=== PATIENT | male | born 1990 | race Caucasian/White ===

== ENCOUNTER 2020-11-04 15:57 | Emergency (ER) | payer OTHER, SELFPAY ==
--- NOTE | 2020-11-04 03:22 | XRR_ITS ---
PROCEDURE INFORMATION: Exam: XR Chest Exam date and time: 11/04/2020 7:16 PM Age: 30 years old Clinical indication: Condition or disease; Lung condition and disease; Pneumothorax TECHNIQUE: Imaging protocol: XR of the chest. Views: 1 view. COMPARISON: No relevant prior studies available. FINDINGS: There is a small to moderate sized left pneumothorax. The right lung is clear. No infiltrates are present. There is no pleural effusion. The heart size is normal. XR/XR chest 1V portable [id number] IMPRESSION: Small to moderate sized left pneumothorax. There is approximately a 2.7 cm separation of the pleural surface within the apex.
[2020-11-04 16:08] VITALS: BP 129/70; PULSE 85; RESP 18; TEMP 37.1; O2SAT 100; BMI 25.1
[2020-11-04 16:15] VITALS: BP 129/70; PULSE 90; RESP 18; O2SAT 97
[2020-11-04] MEDS: ketorolac 60 mg/2 mL INJ IM (17:03)
[2020-11-04] MEDS: orphenadrine 30 mg/mL Inj 2 mL 60 MG IM (17:04)
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
--- NOTE | 2020-11-04 17:15 | CTR_ITS ---
PROCEDURE INFORMATION: Exam: CT Abdomen And Pelvis With Contrast Exam date and time: 11/04/2020 5:30 PM Age: 30 years old Clinical indication: Abdominal pain; Generalized; Prior surgery; Surgery date: 6+ months; Surgery type: Appy; Additional info: Abd pain TECHNIQUE: Imaging protocol: Computed tomography of the abdomen and pelvis with contrast. Radiation optimization: All CT scans at this facility use at least one of these dose optimization techniques: automated exposure control; mA and/or kV adjustment per patient size (includes targeted exams where dose is matched to clinical indication); or iterative reconstruction. Contrast material: OMNIPAQUE 300; Contrast volume: 95 ml; Contrast route: INTRAVENOUS (IV); COMPARISON: No relevant prior studies available. RADIATION DOSE METRICS: Total DLP (mGy-cm): 1387.65 FINDINGS: There is some atelectasis within the lung bases. There is small pleural effusions. There is a left pneumothorax. Bony structures are unremarkable. There is no liver mass. There is no intrahepatic biliary dilatation. The gallbladder is contracted likely due to recent meal. The stomach is filled with food. The pancreas is unremarkable. Splenic granulomas are present. There is no adrenal mass. There is no hydronephrosis. There are no renal calculi. There is no perinephric stranding. There is no renal mass. The aorta is normal in caliber. The IVC is normal in caliber. There is no retroperitoneal adenopathy. There is no mesenteric adenopathy. There is no gastric wall thickening. The small bowel loops in the upper abdomen are nondistended with no bowel wall thickening. Feces is seen throughout the colon. There is no thickening of the wall of the ascending, transverse or descending colons. Within the pelvis:The patient is status post appendectomy. The bladder is unremarkable. The prostate gland and seminal vesicles are normal. There is no free fluid within the pelvis. There is no inguinal adenopathy. There is no pelvic adenopathy. The bowel loops within the pelvis are unremarkable. There is some air within the soft tissues involving the left gluteal muscles of uncertain significance. Please correlate clinically. CT/CT abdomen pelvis w con* [id number] IMPRESSION: 1. Small bilateral pleural effusions. 2. Left pneumothorax. 3. No evidence for bowel obstruction or bowel wall thickening. 4. Air within the soft tissues of the left gluteal muscles of uncertain significance. Please correlate clinically. Radiation Dose CTDIVOL = (mGy): DLP = 1387.65 (mGy-cm)
[2020-11-04 18:15] VITALS: BP 109/73; PULSE 81; RESP 18; O2SAT 95
[2020-11-04] MEDS: iohexol 300 mg/mL 100 mL Btl IV (18:46)
[2020-11-04 20:56] VITALS: BP 119/70; PULSE 87; RESP 17; O2SAT 98
== END 2020-11-04 20:56 | disposition home or self-care (01) ==
PROVIDERS: Emergency Provider Emergency Medicine
DX: S27.0XXA Traumatic pneumothorax, initial encounter (principal); S32.519A Fracture of superior rim of unspecified pubis, initial encounter for closed fracture; T79.7XXA Traumatic subcutaneous emphysema, initial encounter; Z79.82 Long term (current) use of aspirin; V09.9XXA Pedestrian injured in unspecified transport accident, initial encounter
CPT/HCPCS: 71045; 74177; 96372; 96374; 99283; J1885; J2360; Q9967

== ENCOUNTER 2022-04-14 20:17 | Emergency (ER) | payer OTHER, SELFPAY ==
--- NOTE | 2022-04-14 20:31 | XRR_ITS ---
PROCEDURE INFORMATION: Exam: XR Chest Exam date and time: 04/14/2022 9:24 PM Age: 32 years old Clinical indication: Pain; Chest pressure; Additional info: Chest pain TECHNIQUE: Imaging protocol: Radiologic exam of the chest. Views: 1 view. COMPARISON: CR (CHEST, ) 11/04/2020 7:20 PM FINDINGS: Lungs: Unremarkable. No consolidation. Pleural spaces: Unremarkable. No pleural effusion. No pneumothorax. Heart/Mediastinum: Unremarkable. No cardiomegaly. Bones/joints: Unremarkable. XR/XR chest 1V portable [id number] IMPRESSION: No acute findings.
[2022-04-14 20:45] VITALS: BP 108/57; PULSE 67; RESP 18; TEMP 36.7; O2SAT 97; BMI 25.7
--- NOTE | 2022-04-14 20:52 | ECG_ITS ---
"[facility] Test Date: 2022-04-14 Pat Name: Lj Buckner Department: Room: Gender: Male Service Department Manager: : 1990 Requested By: Demetrius Munoz Order Number: [id number] Erick MD: Suzette Valencia M.D. Measurements Intervals [place] Rate: 58 P: 52 ID: 141 QRS: 81 QRSD: 97 T: 57 QT: 406 QTc: 402 Interpretive Statements SINUS BRADYCARDIA No previous ECG available for comparison Electronically Signed On 04-15-2022 22:57:23 CDT by Suzette Valencia M.D. [email or web address]"
[2022-04-14 22:00] VITALS: BP 140/71; PULSE 52; RESP 14; O2SAT 96
[2022-04-14 22:21] LABS: Basophils % 0.4 %; Eosinophils # 0.2 10^3/uL (0.0-0.8); Hematocrit 38.7 % (42.0-52.0); Hemoglobin 13.2 g/dL (11.7-16.6); Lymphocytes # 2.5 10^3/uL (0.8-4.8); Lymphocytes % 26.8 %; Mean Corpuscular HGB Conc 34.1 g/dL (30.0-36.0); Mean Corpuscular Hemoglobin 32.1 pg (28.0-34.0); Mean Corpuscular Volume 94.2 fl (80-94); Mean Platelet Volume 9.9 fL (7.4-10.4); Monocytes # 0.7 10^3/uL (0.2-0.9); Monocytes % 7.3 %; Neutrophils # 5.81 10^3/uL (1.8-7.7); Neutrophils % 63.2 %; Nucleated Red Blood Cells % 0 %; Platelet Count 193 10^3/cmm (130-400); Red Blood Count 4.11 10^6/uL (4.1-5.3); Red Cell Distribution Width 12.4 % (12.1-15.1); White Blood Count 9.2 10^3/uL (4.0-10.0)
[2022-04-14 22:30] VITALS: BP 122/69; PULSE 53; RESP 13; O2SAT 94
[2022-04-14 22:47] LABS: Troponin(5th) Baseline 6 ng/L (0-15)
--- NOTE | 2022-04-14 22:52 | ECG_ITS ---
[facility] Test Date: 2022-04-14 Pat Name: Lj Buckner Department: Room: Gender: Male Patient Scheduler: : 1990 Requested By: Demetrius Munoz Order Number: [id number] Suarez MD: Suzette Valencia M.D. Measurements Intervals [place] Rate: 60 P: 55 [place]: 165 QRS: 88 QRSD: 99 T: 41 QT: 395 QTc: 395 Interpretive Statements SINUS RHYTHM WITH SINUS ARRHYTHMIA Compared to ECG 04/14/2022 20:52:51 Sinus bradycardia no longer present Electronically Signed On 04-15-2022 23:09:49 CDT by Suzette Valencia M.D. [id number]
[2022-04-14 22:54] LABS: Alanine Aminotransferase 22 U/L (0-41); Albumin Level 3.7 g/dL (3.5-5.2); Alkaline Phosphatase 63 U/L (40-130); Blood Urea Nitrogen 14 mg/dL (6-20); Calcium 9.2 mg/dL (8.5-10.5); Carbon Dioxide 27 mmol/L (22-29); Chloride 101 mmol/L (98-107); Creatinine Clr Calc Pharmacy 148.8781; Globulin 2.3 g/dL (1.3-4.6); Glomerular Filtration Rate 112.8 mL/min (90-130); Glucose 123 mg/dL (65-115); NT Pro B Type Natriuretic Pept 17 pg/mL (0-125); Osmolality Calculated 290 mOsm/kg (285-295); Sodium 139 mmol/L (136-145); Total Bilirubin 0.3 mg/dL (0.15-1.2)
[2022-04-14 22:59] LABS: Anion Gap 15.2 (5-19); Aspartate Amino Transferase 22 U/L (0-40); Potassium 4.2 mmol/L (3.5-5.1)
[2022-04-14 23:00] VITALS: BP 131/60; PULSE 56; RESP 15; O2SAT 94
[2022-04-14 23:30] VITALS: BP 122/66; PULSE 74; RESP 19; O2SAT 92
[2022-04-15] VITALS: BP 116/66; PULSE 54; RESP 17; O2SAT 94
[2022-04-15 00:43] VITALS: BP 127/70; PULSE 58; RESP 16; O2SAT 94
--- NOTE | 2022-04-16 10:28 | W.ED.CHESTPA ---
HPI - Chest Pain General: Chief Complaint: Chest Pain Stated Complaint: heart issues Time Seen by Provider: 04/14/22 21:47 Source: patient History of Present Illness: 32 year old male patient complaining of a feeling of his heart stopping when he lays down to go to sleep. it seems to improve when he sets up, even when sleeping. he is not a really short of breath. he does not notice these symptoms while active. he denies significant chest pain or shortness of breath. MD complaint: chest discomfort and other Pertinent past history: other Onset (ago): day(s) Timing of current episode: episodic Prior episodes: Yes Onset: during rest Pain location: other Pain radiation: none Quality: other Relieving factors: nothing Exacerbating factors: nothing Associated symptoms: Reports diaphoresis, nausea and palpitations; Deny abdominal pain, dyspnea, fever(s), leg edema or vomiting Treatment prior to arrival: none Review of Systems Const: Reports: diaphoresis; Denies: fever(s) Eyes: Denies: change in vision Card: Reports: palpitations; Denies: irregular heart rhythm Resp: Denies: dyspnea GI: Reports: nausea; Denies: abdominal pain or vomiting Skin/Breast: Denies: rash Neuro: Denies: headache(s), weakness in extremities, dizziness or confusion Physical Exam Const: COMMON NORMALS: no acute distress GENERAL APPEARANCE: cooperative and lethargic (mildly); not ill appearing and not frail appearing ORIENTATION/CONSCIOUSNESS: Yes lethargic (mildly) HENMT: COMMON NORMALS: normocephalic, atraumatic and Normal external nose present HEAD & SCALP: normocephalic and atraumatic FACE & SINUS: normal facial exam and face symmetric NOSE: Normal external nose present Eye: COMMON NORMALS: Equal, round and reactive pupils present and EOMs intact bilaterally PUPIL: Yes Equal, round and reactive pupils present Neck/C-Spine: GENERAL: Yes trachea midline Chest: CHEST: Yes Symmetrical chest wall rise Resp: COMMON NORMALS: normal respiratory effort, No retractions, No use of accessory muscles and clear to auscultation bilaterally AUSCULTATION: clear to auscultation bilaterally Cardio: COMMON NORMALS: regular rate and regular rhythm RATE: regular rate RHYTHM: regular rhythm GI: COMMON NORMALS: Normal to inspection, nondistended, normoactive bowel sounds present Extremity: COMMON NORMALS: no pedal edema Neuro: CHERRY COMA SCALE: document GCS findings Cherry coma scale eye opening: Spontaneous [place] coma scale verbal response: Orientated Cherry coma scale motor response: Obey commands Cherry coma scale total score: 15 SENSORIUM/ORIENTATION: Yes lethargic (mildly) SENSORY EXAM: Yes extremities (intact) Psych: COMMON NORMALS: speech normal SPEECH: Yes normal speech Skin: COMMON NORMALS: no rashes or lesions noted GENERAL SKIN EXAM: no rashes or lesions noted Course Vital Signs: Vital signs: Vital Signs Temperature 98.0 F 04/14/22 20:45 Pulse Rate 58 L 04/15/22 00:43 Respiratory Rate 16 04/15/22 00:43 Blood Pressure 127/70 04/15/22 00:43 Pulse Oximetry 94 04/15/22 00:43 Oxygen Delivery Me thod 04/14/22 20:45 MDM - Chest Pain Medical Decision Making Lj has been noted to be bradycardic on the monitor. His heart rate has been as low as 50. His rhythm has remained sinus. His EKG is normal without a ST change or Q waves. His laboratory is not remarkable. He was noted on exam to have track mitchell on his forearm, which could be part of his problem. At one point in the room, he was diaphoretic which is his only other objective exam finding. We will set him up for a holter monitor to monitor his rhythm given his symptoms and bradycardia. We will have him follow up with a PCP as he does not have one. Lab Data : 04/14/22 22:16 04/14/22 22:16 Radiology Impressions Chest X-Ray 04/14/22 20:31 IMPRESSION: No acute findings. Laboratory Results WBC 9.2 10^3/uL (4.0-10.0) 04/14/22 22:16 RBC 4.11 10^6/uL (4.1-5.3) 04/14/22 22:16 Hgb 13.2 g/dL (11.7-16.6) 04/14/22 22:16 Hct 38.7 % (42.0-52.0) L 04/14/22 22:16 MCV 94.2 fl (80-94) H 04/14/22 22:16 MCH 32.1 pg (28.0-34.0) 04/14/22 22:16 MCHC 34.1 g/dL (30.0-36.0) 04/14/22 22:16 RDW 12.4 % (12.1-15.1) 04/14/22 22:16 Plt Count 193 10^3/cmm (130-400) 04/14/22 22:16 MPV 9.9 fL (7.4-10.4) 04/14/22 22:16 Neut % (Auto) 63.2 % 04/14/22 22:16 Lymph % (Auto) 26.8 % 04/14/22 22:16 Floyd % (Auto) 7.3 % 04/14/22 22:16 Eos % (Auto) 2.0 % 04/14/22 22:16 Baso % (Auto) 0.4 % 04/14/22 22:16 Neut # (Auto) 5.81 10^3/uL (1.8-7.7) 04/14/22 22:16 Lymph # (Auto) 2.5 10^3/uL (0.8-4.8) 04/14/22 22:16 Floyd # (Auto) 0.7 10^3/uL (0.2-0.9) 04/14/22 22:16 Eos # (Auto) 0.2 10^3/uL (0.0-0.8) 04/14/22 22:16 Baso # (Auto) 0.0 10^3/uL (0.0-0.1) 04/14/22 22:16 Nucleated RBC % (auto) 0 % 04/14/22 22:16 Nucleated RBCs # 0.0 /100WBC 04/14/22 22:16 Sodium 139 mmol/L (136-145) 04/14/22 22:16 Potassium 4.2 mmol/L (3.5-5.1) 04/14/22 22:16 Chloride 101 mmol/L (98-107) 04/14/22 22:16 Carbon Dioxide 27 mmol/L (22-29) 04/14/22 22:16 Anion Gap 15.2 (5-19) 04/14/22 22:16 BUN 14 mg/dL (6-20) 04/14/22 22:16 Creatinine 0.8 mg/dL (0.7-1.2) 04/14/22 22:16 GFR Calculation 112.8 mL/min (90-130) 04/14/22 22:16 Glucose 123 mg/dL (65-115) H 04/14/22 22:16 Calculated Osmolality 290 mOsm/kg (285-295) 04/14/22 22:16 Calcium 9.2 mg/dL (8.5-10.5) 04/14/22 22:16 Total Bilirubin 0.3 mg/dL (0.15-1.2) 04/14/22 22:16 AST 22 U/L (0-40) 04/14/22 22:16 ALT 22 U/L (0-41) 04/14/22 22:16 Alkaline Phosphatase 63 U/L (40-130) 04/14/22 22:16 Troponin T Baseline 6 ng/L (0-15) 04/14/22 22:16 NT-Pro-B Natriuret Pep 17 pg/mL (0-125) 04/14/22 22:16 Total Protein 6.0 g/dL (6.6-8.7) L 04/14/22 22:16 Albumin 3.7 g/dL (3.5-5.2) 04/14/22 22:16 Globulin 2.3 g/dL (1.3-4.6) 04/14/22 22:16 Discharge Plan Discharge Patient Disposition: Home Clinical Impression: Heart palpitations Condition: Stable Prescriptions: No Action cyclobenzaprine 10 mg tablet 10 mg PO BID PRN (Reason: Pain) meloxicam 15 mg tablet 15 mg PO DAILY ondansetron HCl 4 mg tablet 4 mg PO BID PRN (Reason: Nausea) aspirin 81 mg tablet,delayed release (DR/EC) 81 mg PO BID docusate sodium 100 mg capsule 100 mg PO BID alprazolam 1 mg tablet 1 mg PO BID PRN (Reason: Anxiety) Qty: 10 0RF hydrocodone-acetaminophen 7.5-325 mg tablet 1 tab PO Q4H PRN (Reason: Pain) Qty: 10 0RF Discharge Orders: Discharge ED (Routine); Ordered 04/14/22 Ordered By: Harry Hamilton Patient Instructions: Heart Palpitations (ED), Bradycardia (ED) Activity Restrictions/Additional Instructions: Your work-up did not reveal a cause of your symptoms this evening except for a mildly low heart rate. Further outpatient work-up may be needed. Case management will give you a call regarding setting up a Holter monitor for you to wear for several days. This will record your heart rhythm, even while sleeping. We will set you up with a follow-up appointment with a physician after placement. Return for chest discomfort, shortness of breath, fever, other concerning symptoms. Coding Level of Care Code ED Handkerchief Sample Clerk for Noris Wyman
--- NOTE | 2022-04-16 16:49 | DCPLANNER ---
Addendum entered by Marsha Marino 05/15/22 14:52: Patient had an appointment scheduled with heart care - patient did not attend appointment. Original Note: donor recruitment manager had message to schedule a halter monitor for patient. donor recruitment manager faxed signed order to heart care, clinic will call patient with appointment information.
== END 2022-04-15 00:44 | disposition home or self-care (01) ==
PROVIDERS: Nurse Practitioner Family; Emergency Provider Emergency Medicine
DX: R00.2 Palpitations (principal); Z79.82 Long term (current) use of aspirin
CPT/HCPCS: 71045; 80053; 83880; 84484; 85025; 93005; 99285

== ENCOUNTER 2022-04-22 02:49 | Emergency (ER) | payer OTHER, SELFPAY ==
[2022-04-22 02:53] VITALS: BP 132/79; PULSE 77; RESP 16; TEMP 36.2; O2SAT 99
[2022-04-22 03:23] LABS: Add Urine Microscopic? NO; Charge for UA Resulting for Rev
[2022-04-22] MEDS: haloperidol inj 5 mg/mL INJ 1 mL IM (03:34)
[2022-04-22 03:35] LABS: Amphetamines Screen Urine Negative (Negative); Barbiturates Screen Urine Negative (Negative); Benzodiazepines Screen Urine Negative (Negative); Cocaine Screen Urine Negative (Negative); Opiate Screen Urine Positive (Negative); PCP Screen Urine Negative (Negative); THC Screen Urine Positive (Negative)
[2022-04-22] MEDS: midazolam 1 mg/mL INJ 2 mL 3 MG IM (03:36)
[2022-04-22 03:37] LABS: Bilirubin Urine Neg (Negative); Blood Urine Neg (Negative); Glucose Urine UA Norm (Normal); Ketones Urine Negative (Negative); Leukocyte Esterase Urine Negative (Negative); Nitrate Urine Negative (Negative); Protein Urine Neg (Negative); Specific Gravity, Urine 1.015 (1.005-1.030); Sulfosalicylic Acid Urine Negative (Negative); Urine Appearance Cloudy (CLEAR); Urine Color Yellow (Yellow); Urobilinogen Urine Neg (Negative); pH Urine 8 (5-7)
[2022-04-22 04:21] VITALS: PULSE 59; RESP 17; O2SAT 98
--- NOTE | 2022-04-22 04:48 | ED.C_ITS ---
HPI - Psych General: Chief Complaint: Psychiatric Symptoms Stated Complaint: withdrawl Time Seen by Provider: 04/22/22 03:08 Source: patient History of Present Illness: 32-year-old male who states that he has been using IV fentanyl for the past 4 to 6 weeks. He has been dosing himself every 3 hours or so he says. He dosed himself at 11 PM last night, and states that he wants to stop. He is on our 4-5, and is diaphoretic. He is feeling anxious. He fe els like I am going to . He has had a small amount of diarrhea. No vomiting. He has had muscle cramps. He states I would rather than go through withdrawal . He has no specific plan for suicide. MD complaint: other Onset (ago): hour(s) Duration: constant History of same: Yes Exacerbating factors: medication Associated psychiatric symptoms: depression Associated symptoms: Reports depression; Deny auditory hallucinations, visual hallucinations, delusions, homicidal ideation or suicidal ideation Treatments prior to arrival: none Review of Systems Const: Reports: chills, body aches and diaphoresis; Denies: fever(s) Eyes: Denies: change in vision ENMT: Denies: throat pain Card: Denies: chest pain or palpitations Resp: Denies: dyspnea GI: Reports: abdominal pain, nausea and diarrhea; Denies: vomiting Neuro: Denies: headache(s) Psych: Reports: depression; Denies: visual hallucinations, auditory hallucinations, suicidal ideation or homicidal ideation Physical Exam Const: GENERAL APPEARANCE: cooperative, well kempt, in distress, anxious, ill appearing (Mildly) and diaphoretic; not comfortable and not frail appearing HENMT: COMMON NORMALS: normocephalic, atraumatic and Normal external nose present HEAD & SCALP: normocephalic and atraumatic FACE & SINUS: normal facial exam and face symmetric NOSE: Normal external nose present Eye: COMMON NORMALS: Equal, round and reactive pupils present and EOMs intact bilaterally PUPIL: Yes Equal, round and reactive pupils present Chest: CHEST: Yes Symmetrical chest wall rise Resp: COMMON NORMALS: normal respiratory effort, No use of accessory muscles and clear to auscultation bilaterally AUSCULTATION: clear to auscultation bilaterally Cardio: COMMON NORMALS: regular rate and regular rhythm RATE: regular rate RHYTHM: regular rhythm GI: COMMON NORMALS: Normal to inspection, nondistended, normoactive bowel sounds present and Soft to palpation PALPATION: Yes Soft to palpation Extremity: COMMON NORMALS: normal to inspection Neuro: ERIK COMA SCALE: document GCS findings Danforth coma scale eye opening: Spontaneous Dan[place] coma scale verbal response: Orientated Erik coma scale motor response: Obey commands Erik coma scale total score: 15 Psych: COMMON NORMALS: Normal thought process present, cooperative and speech normal APPEARANCE: Yes well kempt ATTITUDE: Yes engaged and No hostile ACTIVITY/MOTOR BEHAVIOR: Yes psychomotor agitation SPEECH: Yes normal speech MOOD & AFFECT: Yes depressed mood and Yes tearful THOUGHT PROCESS: Normal thought process present THOUGHT CONTENT: Yes Normal thought content present, No Suicidality present, No Homicidality present and No delusions ATTENTION/CONCENTRATION: Yes attention grossly intact and Yes concentration grossly intact MEMORY/COGNITION: Yes memory grossly intact and Yes cognition grossly intact INSIGHT: Fair insight present (Psych) JUDGEMENT: Fair judgement present (Psych) Course Vital Signs: Vital signs: Vital Signs Temperature 97.2 F L 04/22/22 02:53 Pulse Rate 67 04/22/22 05:31 Respiratory Rate 18 04/22/22 05:31 Blood Pressure 143/72 04/22/22 05:33 Pulse Oximetry 99 04/22/22 05:31 Oxygen Delivery Me thod 04/22/22 05:31 MDM - Psych Medical Decision Making Urinalysis is positive for marijuana and opiates. His vitals are stable. His pulse is 60. Blood pressure 132/79 saturation is 98%. He asks for a sedative to help him with his symptoms. Clonidine patch is placed, and he is given an injection of Haldol and Versed with good results. He was told that there is no magic bullet for opioid withdrawal syndrome. We do not prescribe long-acting opioids here. He will be discharged on sedative medication. Given the short acting nature of fentanyl, he should be clear if symptoms quickly. We will leave clonidine on. He will get Thorazine 3 times daily for the next 4 days. This should help with his withdrawal symptoms. Lab Data Laboratory Results Urine Color Yellow (Yellow) 04/22/22 03:08 Urine Appearance Cloudy (CLEAR) A 04/22/22 03:08 Urine pH 8 (5-7) H 04/22/22 03:08 Ur Specific [place] 1.015 (1.005-1.030) 04/22/22 03:08 Urine Protein Neg (Negative) 04/22/22 03:08 Urine Glucose (UA) Norm (Normal) 04/22/22 03:08 Urine Ketones Negative (Negative) 04/22/22 03:08 Urine Blood Neg (Negative) 04/22/22 03:08 Urine Nitrate Negative (Negative) 04/22/22 03:08 Urine Bilirubin Neg (Negative) 04/22/22 03:08 Prot Sulfosalicylic Acd Negative (Negative) 04/22/22 03:08 Urine Urobilinogen Neg mg/dL (Negative) 04/22/22 03:08 Ur Leukocyte Esterase Negative (Negative) 04/22/22 03:08 Urine Opiates Screen Positive ng/mL (Negative) H 04/22/22 03:08 Ur Barbiturates Screen Negative ng/mL (Negative) 04/22/22 03:08 Ur Phencyclidine Scrn Negative ng/mL (Negative) 04/22/22 03:08 Ur Amphetamines Screen Negative ng/mL (Negative) 04/22/22 03:08 U Benzodiazepines Scrn Negative ng/mL (Negative) 04/22/22 03:08 Urine Cocaine Screen Negative ng/mL (Negative) 04/22/22 03:08 U Marijuana (THC) Screen Positive ng/mL (Negative) H 04/22/22 03:08 Discharge Plan Discharge Patient Disposition: Home Clinical Impression: Acute opioid withdrawal Condition: Stable Prescriptions: New clonidine 0.1 mg/24 hr Patch Weekly 1 patch transdermal Q7D Qty: 1 0RF chlorpromazine 50 mg tablet 50 mg PO TID Qty: 14 0RF ketorolac 10 mg tablet 10 mg PO TID PRN (Reason: pain) Qty: 10 0RF Discontinued cyclobenzaprine 10 mg tablet 10 mg PO BID PRN (Reason: Pain) meloxicam 15 mg tablet 15 mg PO DAILY ondansetron HCl 4 mg tablet 4 mg PO BID PRN (Reason: Nausea) docusate sodium 100 mg capsule 100 mg PO BID alprazolam 1 mg tablet 1 mg PO BID PRN (Reason: Anxiety) Qty: 10 0RF hydrocodone-acetaminophen 7.5-325 mg tablet 1 tab PO Q4H PRN (Reason: Pain) Qty: 10 0RF No Action aspirin 81 mg tablet,delayed release (DR/EC) 81 mg PO BID Discharge Orders: Discharge ED (Routine); Ordered 04/22/22 Ordered By: Harry Hamilton Patient Instructions: Narcotic Withdrawal (ED), Opioid Safety, Pain Management Activity Restrictions/Additional Instructions: Use medication scheduled for the next 3 days, then as needed. Keep your patch on at least 3 days. Return for thoughts or wishes with a specific plan to harm your self or anyone else. Coding Level of Care Code ED Hotel Controller for Noris Fwd Exam Comprehensive
[2022-04-22 05:31] VITALS: BP 143/72; PULSE 67; RESP 18; O2SAT 99
[2022-04-22 05:33] VITALS: BP 143/72
[2022-04-22] MEDS: cloNIDine 0.1 mg/24 hr Patch 1 PATCH TRANSDERMA (05:33)
[2022-04-22] MEDS: chlorPROMazine 50 mg Tablet PO (05:35)
[2022-04-22 09:59] VITALS: BP 143/78; PULSE 87; O2SAT 98
== END 2022-04-22 09:45 | disposition home or self-care (01) ==
PROVIDERS: Emergency Provider Emergency Medicine
DX: F11.23 Opioid dependence with withdrawal (principal)
CPT/HCPCS: 80306; 81003; 96372; 99284; J1630; J2250; Q0161

== ENCOUNTER 2023-01-13 02:37 | Emergency (ER) | payer OTHER, SELFPAY ==
--- NOTE | 2023-01-13 02:40 | XRR_ITS ---
PROCEDURE INFORMATION: Exam: XR Abdomen Exam date and time: 01/13/2023 2:44 AM Age: 32 years old Clinical indication: Prior surgery; Surgery date: 6+ months; Surgery type: Appy; Patient HX: C/O constipation TECHNIQUE: Imaging protocol: Radiologic exam of the abdomen. Views: Frontal supine view of the abdomen. 1 View. COMPARISON: CT abdomen pelvis w con* [id number] 11/04/2020 6:44 PM FINDINGS: Gastrointestinal tract: Large volume fecal debris noted throughout the colon is suggestive of constipation. No obstructive features. No abnormal calcifications over the kidneys or expected course of either ureter. Bones/joints: Unremarkable. XR/XR KUB [id number] IMPRESSION: Large volume fecal debris throughout the colon suggests constipation.
[2023-01-13 02:42] VITALS: BP 111/68; PULSE 68; RESP 18; TEMP 36.9; O2SAT 95; BMI 28.5
[2023-01-13] MEDS: lactulose oral liq 20 gm/30 mL UDC 30 GM PO (02:45)
[2023-01-13] MEDS: glycerin adult supp 1 EACH PR (02:46)
[2023-01-13 02:47] VITALS: BP 104/66; PULSE 63; RESP 16; O2SAT 94
--- NOTE | 2023-01-13 02:54 | ED_ITS ---
HPI - Abdominal Pain General: Chief Complaint: Abdominal Pain Stated Complaint: Constipation Time Seen by Provider: 01/13/23 02:41 Source: patient Mode of arrival: ambulatory Limitations: no limitations History of Present Illness: 32-year-old male states that he has been constipated for last 4 days states has not been able a bowel movement he states he had been sitting on the toilet tonight for 35 minutes was unable to go. He states he had pain at his rectum denies any vomiting denies any diarrhea he states he may swell also swallowed his tongue wearing 3 days ago Associated Symptoms: Reports constipation; Denies chills, diarrhea, fever(s), nausea and vomiting Review of Systems Const: Denies: fever(s), chills, body aches or change in appetite ENMT: Denies: throat pain or dental pain Card: Denies: chest pain Resp: Denies: dyspnea GI: Reports: abdominal pain and constipation; Denies: nausea, vomiting or diarrhea Musc: Denies: neck pain or back pain Skin/Breast: Denies: rash Neuro: Denies: headache(s) Physical Exam Const: COMMON NORMALS: no acute distress, patient oriented x3 and healthy appearing HENMT: COMMON NORMALS: normocephalic and atraumatic HEAD & SCALP: normocephalic and atraumatic Eye: COMMON NORMALS: conjunctivae normal CONJUNCTIVA: Yes conjunctivae normal Neck/C-Spine: COMMON NORMALS: full ROM and supple Chest: COMMONS NORMALS: normal inspection of the chest Resp: COMMON NORMALS: normal respiratory effort Cardio: COMMON NORMALS: regular rate and No murmurs present (Cardio) RATE: regular rate GI: COMMON NORMALS: Normal to inspection, nondistended, normoactive bowel sounds present, Soft to palpation, non-tender and no masses PALPATION: Yes Soft to palpation Extremity: COMMON NORMALS: normal to inspection and full ROM Neuro: COMMON NORMALS: patient oriented x3, moves all extremities and no focal motor deficits Psych: COMMON NORMALS: mental status grossly normal, Normal thought process present and cooperative THOUGHT PROCESS: Normal thought process present Skin: COMMON NORMALS: no rashes or lesions noted and no wounds GENERAL SKIN EXAM: no rashes or lesions noted Course Vital Signs: Vital signs: Vital Signs Temperature 98.4 F 01/13/23 02:42 Pulse Rate 63 01/13/23 02:47 Respiratory Rate 16 01/13/23 02:47 Blood Pressure 104/66 01/13/23 02:47 Pulse Oximetry 94 01/13/23 02:47 Oxygen Delivery Me thod Room Air 01/13/23 02:47 MDM - Abdominal Pain Medical Decision Making Patient presents here with abdominal pain from constipation he did have a bowel movement here feels much improved we will place him on MiraLAX he is follow-up with PCP and return if worsening. Medical Records I reviewed the patient's medical records. Lab Data I reviewed the patient's lab results. Labs/Radiology: Radiology Impressions KUB X-Ray 01/13/23 02:40 IMPRESSION: Large volume fecal debris throughout the colon suggests constipation. Discharge Plan Discharge Patient Disposition: Home Clinical Impression: Constipation Condition: Stable Prescriptions: New Miralax 17 gram powder in packet 17 g PO DAILY PRN (Reason: constipation) Qty: 14 0RF No Action aspirin 81 mg tablet,delayed release (DR/EC) 81 mg PO BID clonidine 0.1 mg/24 hr Patch Weekly 1 patch transdermal Q7D Qty: 1 0RF chlorpromazine 50 mg tablet 50 mg PO TID Qty: 14 0RF ketorolac 10 mg tablet 10 mg PO TID PRN (Reason: pain) Qty: 10 0RF Discharge Orders: Discharge ED (Routine); Ordered 01/13/23 Ordered By: Adryan Nolasco Discharge Diet: Advance as tolerated Discharge Activity: Resume usual activity Patient Instructions: Constipation (ED) Coding Level of Care Code ED Landing Scaler for Noris Wyman
[2023-01-13] MEDS: HYDROcodone-acetaminophen 5-325 mg Tablet 1 TAB PO (03:48)
--- NOTE | 2023-01-15 09:18 | DCPLANNER ---
manager oncology called patient due to no primary care physician - patient declines at this time.
== END 2023-01-13 03:50 | disposition home or self-care (01) ==
PROVIDERS: Emergency Provider Emergency Medicine
DX: K59.00 Constipation, unspecified (principal)
CPT/HCPCS: 74018; 99283

== ENCOUNTER 2023-06-09 15:27 | Emergency (ER) | payer OTHER, SELFPAY ==
[2023-06-09 15:44] VITALS: BP 116/57; PULSE 70; RESP 16; TEMP 36.7; O2SAT 96; BMI 39.6
--- NOTE | 2023-06-09 16:10 | ED_ITS ---
HPI - General Adult General: Chief complaint: Shortness of Breath/Dyspnea Stated complaint: sore throat Time Seen by Provider: 06/09/23 15:29 Source: patient Mode of arrival: ambulatory History of Present Illness: 33-year-old male reports emergency room with complaint of swelling of his uvula. He was seen in primary care office and given a shot of steroids referred to the emergency room he denied any fever sweats chills yesterday he was bit by a bee but he has no localized swelling no other rash or hives he is not having any difficulty breathing just sensation of discomfort in the back of his throat from the swelling of his uvula. He is not excessively snore. No fever sweats chills no particular pharyngitis. Onset (ago): minute(s) Severity: mild Associated symptoms: Deny chest pain, confusion, cough, diaphoresis, decreased appetite, dyspnea, fevers/chills, headache(s), malaise, nausea, rash, palpitations, seizures, short of breath, syncope, vomiting or weakness Review of Systems Const: Denies: malaise or diaphoresis Card: Denies: chest pain, palpitations or syncope Resp: Denies: dyspnea GI: Denies: nausea or vomiting : Denies: dysuria, urinary frequency or urinary urgency Musc: Denies: neck pain or back pain Skin/Breast: Denies: rash Neuro: Denies: headache(s) or confusion Physical Exam Const: COMMON NORMALS: no acute distress GENERAL APPEARANCE: cooperative and comfortable ORIENTATION/CONSCIOUSNESS: Yes awake, Yes oriented to person, Yes oriented to place and Yes oriented to time HENMT: COMMON NORMALS: normocephalic, atraumatic and hearing grossly normal bilaterally HEAD & SCALP: normocephalic and atraumatic OTHER: Isolated swelling of the uvula no posterior pharyngeal swelling or exudate Neck/C-Spine: COMMON NORMALS: full ROM, no lymphadenopathy and supple Resp: COMMON NORMALS: normal respiratory effort, No retractions, No use of accessory muscles and clear to auscultation bilaterally AUSCULTATION: clear to auscultation bilaterally Cardio: COMMON NORMALS: regular rate, regular rhythm and No murmurs present (Cardio) RATE: regular rate RHYTHM: regular rhythm GI: COMMON NORMALS: Soft to palpation and No hepatosplenomegaly present AUSCULTATION: Yes normoactive bowel sounds PALPATION: Yes Soft to palpation, No Tenderness to palpation present (GI), No Guarding due to palpation present (GI) and Yes No hepatosplenomegaly present Extremity: COMMON NORMALS: normal to inspection, capillary refill normal, no clubbing, cyanosis or edema, no calf tenderness and no pedal edema Neuro: SENSORIUM/ORIENTATION: Yes oriented to person, Yes oriented to place and Yes oriented to time Skin: COMMON NORMALS: no rashes or lesions noted GENERAL SKIN EXAM: no rashes or lesions noted Course Vital Signs: Vital signs: Vital Signs Temperature 98.0 F 06/09/23 16:38 Pulse Rate 70 06/09/23 15:44 Respiratory Rate 16 06/09/23 16:38 Blood Pressure 116/57 06/09/23 15:44 Pulse Oximetry 96 06/09/23 15:44 Oxygen Delivery Me thod Room Air 06/09/23 15:44 MDM - General Adult Medical Decision Making Mild uvulitis. Treated with steroid and oral antibiotic follow-up as needed no sign of systemic allergic reaction vital signs otherwise stable no respiratory compromise no stridor Medical Records I reviewed the patient's medical records. Lab Data I reviewed the patient's lab results. No radiology studies performed this visit Discharge Plan Discharge Patient Disposition: Home Clinical Impression: Uvulitis Condition: Stable Prescriptions: New prednisone 20 mg tablet 20 mg PO TID Qty: 15 0RF Rx Instructions: 1 p.o. 3 times daily x3 days, 1 p.o. twice daily x2 days, 1 p.o. daily x2 days amoxicillin 875 mg tablet 875 mg PO BID Qty: 20 0RF No Action ceftriaxone 1 gram recon soln 1 g IM ONCE Qty: 1 0RF methylprednisolone acetate 40 mg/mL suspension 40 mg IM ONCE Qty: 1 0RF dexamethasone sodium phosphate 4 mg/mL solution 4 mg IM ONCE Qty: 1 0RF cephalexin 250 mg/5 mL suspension for reconstitution 500 mg PO TID 10 Days Qty: 300 0RF testosterone cypionate [Depo-Testosterone] 100 mg/mL oil 100 mg SUBCUT Q7D oxycodone 10 mg tablet 10 mg PO TID PRN Discharge Orders: Discharge ED (Routine); Ordered 06/09/23 Ordered By: Tushar Vogt Discharge Diet: Usual diet Discharge Activity: Increase activity as tolerated Patient Instructions: Opioid Safety, Pain Management Activity Restrictions/Additional Instructions: Thank you for choosing [facility] for your healthcare needs today. Please realize this is an emergency room and that we are providing you with a medical screening exam and this may not be complete and all inclusive of all the testing and or work up that you may need to determine your ailment or severity of your illness. It is very important that you follow up as instructed or that you return to the Emergency Department should you have concerns or if your condition changes or worsens in any way. You are seen today for swelling of the uvula and the back of your throat. There is no other accompanying signs or symptoms. There is no cervical lymph nodes you have no wheezing her oxygen saturation retrovirals are normal. You are given a shot of steroids at the outpatient clinic. Recommend you start oral steroids tomorrow start the oral antibiotics as well follow-up with your primary care doctor if not improving Coding Level of Care Code ED Scheduling Analyst for Noris Wyman
[2023-06-09 16:38] VITALS: RESP 16; TEMP 36.7
== END 2023-06-09 16:39 | disposition home or self-care (01) ==
PROVIDERS: Emergency Provider Family Medicine
DX: K12.2 Cellulitis and abscess of mouth (principal)
CPT/HCPCS: 99283

== ENCOUNTER 2023-11-24 22:53 | Emergency (ER) | payer OTHER, SELFPAY ==
[2023-11-24 22:56] VITALS: BP 149/90; PULSE 64; RESP 16; TEMP 36.8; O2SAT 98
--- NOTE | 2023-11-24 23:27 | ED_ITS ---
HPI - Ear Problem General: Chief complaint: Ear Stated complaint: left ear pain Time Seen by Provider: 11/24/23 23:24 History of Present Illness: 33-year-old man with a history of chroni c pain syndrome on oxycodone 3 times a day who presents to the emergency room with left ear pain. Has had some congestion over the last several days and developed ear pain yesterday which was much worse today. He said he just could not take the pain anymore. No hearing loss. No tinnitus. No fever. Review of Systems Narrative: Constitutional symptoms: Negative except as documented in HPI. Skin symptoms: Negative except as documented in HPI. Eye symptoms: Negative except as documented in HPI. ENMT symptoms: Negative except as documented in HPI. Respiratory symptoms: Negative except as documented in HPI. Cardiovascular symptoms: Negative except as documented in HPI. Gastrointestinal symptoms: Negative except as documented in HPI. Genitourinary symptoms: Negative except as documented in HPI. Musculoskeletal symptoms: Negative except as documented in HPI. Neurologic symptoms: Negative except as documented in HPI. Psychiatric symptoms: Negative except as documented in HPI. Endocrine symptoms: Negative except as documented in HPI. [facility] ED PFSH: Medical History (Updated 11/24/23 @ 23:29 by Shyann Gimenez MD) Psychiatric care Physical Exam Narrative: EXAM NARRATIVE: General: Alert, no acute distress. Skin: warm and dry Head: Normocephalic Neck: Trachea midline Eye: Extraocular movements are intact. Ears, nose, mouth and throat: Oral mucosa moist, right TM is erythematous and bulging with some pus behind the drum. The canal appears somewhat red as well Respiratory: Respirations are non-labored Musculoskeletal: Normal ROM Neurological: Alert and oriented, No focal neurological deficit observed. Psychiatric: Cooperative, appropriate mood & affect. Course Vital Signs: Vital signs: Vital Signs Temperature 98.2 F 11/24/23 22:56 Pulse Rate 64 11/24/23 22:56 Respiratory Rate 16 11/24/23 22:56 Blood Pressure 149/90 11/24/23 22:56 Pulse Oximetry 98 11/24/23 22:56 Oxygen Delivery Me thod Room Air 11/24/23 22:56 [facility] - Ear Medical Decision Making Assessment and plan: Otitis media -IM Toradol and first dose of Augmentin here in the emergency room - Discharged home - Discussed plan with patient. Answered any questions. - Evaluation and treatment of this problem were appropriate in the emergency setting. No radiology studies performed this visit Discharge Plan Discharge Patient Disposition: Home Clinical Impression: Otitis media Qualifiers: Otitis media type: unspecified Chronicity: acute Qualified Code(s): H66.90 - Otitis media, unspecified, unspecified ear Condition: Stable Prescriptions: New Cortisporin-TC 3.3-3-10-0.5 mg/mL drops,suspension 4 drp otic (ear) TID Qty: 10 0RF amoxicillin-pot clavulanate 875-125 mg tablet 1 tab PO BID 10 Days Qty: 20 0RF diclofenac sodium 50 mg tablet,delayed release (DR/EC) 50 mg PO Q12H Qty: 20 0RF No Action oxycodone 10 mg tablet 10 mg PO TID PRN Discharge Orders: Discharge ED (Routine); Ordered 11/24/23 Ordered By: Shyann Gimenez Discharge Diet: Usual diet Discharge Activity: Increase activity as tolerated Patient Instructions: Otitis Media - Adult, Opioid Safety, Pain Management Activity Restrictions/Additional Instructions: Thank you for choosing [facility] for your healthcare needs today. Please realize this is an emergency room and that we are providing you with a medical screening exam and this may not be complete and all inclusive of all the testing and or work up that you may need to determine your ailment or severity of your illness. You have been screened and evaluated and felt safe for discharge. Health conditions do change or evolve sometimes and as such it is important that you follow up with your Primary Doctor to be re checked, 3-5 days is a general good time frame for follow up. You are always welcome to return to the ED for re assessment if your symptoms are worsening or you have new concerns Coding Level of Care Code ED Assistant Auditor for Noris Wyman
[2023-11-24 23:49] VITALS: BP 137/46; PULSE 67; RESP 18; O2SAT 97
[2023-11-24] MEDS: ketorolac 60 mg/2 mL INJ IM (23:49)
[2023-11-24] MEDS: amoxicillin-clav 875-125 mg Tablet 1 TAB PO (23:49)
== END 2023-11-24 23:53 | disposition home or self-care (01) ==
PROVIDERS: Emergency Provider Emergency Medicine
DX: H66.92 Otitis media, unspecified, left ear (principal)
CPT/HCPCS: 96372; 99284; J1885

== ENCOUNTER 2023-12-21 09:25 | Emergency (ER) | payer OTHER, SELFPAY ==
[2023-12-21 09:28] VITALS: PULSE 91; RESP 18; TEMP 36.7; O2SAT 98
--- NOTE | 2023-12-21 09:38 | ED_ITS ---
HPI - Extremity Problem General: Chief complaint: Extremity Injury, Lower Stated complaint: Rt knee inj Time Seen by Provider: 12/21/23 09:36 Source: patient Mode of arrival: ambulatory History of Present Illness: 33-year-old male presents to the emergen cy room complaining of left knee pain. He states he fell off a ladder a few weeks ago he was seen by orthopedics after that had an MRI and MRI done and tells me that he is scheduled to have a knee surgery done in a couple of weeks. No other injuries since the MRI. He states been taking oxycodone regularly with no relief of pain. MD Complaint: joint pain Location: right and knee Quality: sharp [facility] ED PFSH: Medical History Psychiatric care Physical Exam Narrative: EXAM NARRATIVE: Patient awake alert and oriented no acute distress. Right knee is in a brace there is no swelling or ecchymosis. Patient declined further exam Course Vital Signs: Vital signs: Vital Signs Temperature 98.0 F 12/21/23 09:28 Pulse Rate 91 12/21/23 09:28 Respiratory Rate 18 12/21/23 09:28 Pulse Oximetry 98 12/21/23 09:28 Oxygen Delivery Me thod Room Air 12/21/23 09:28 MDM - Extremity (Nontraumatic) Medical Decision Making Patient presents with chronic knee pain. The original injury dates back to October 2020. He states he fell a couple of weeks ago but has not had any injury since the MRI done at that time. He has been using oxycodone up to 3 times a day and reports pain is not controlled. Looking through his office notes He has had extensive prescription of narcotics and benzodiazepines. patient declined exam. He also declined recommendation for a knee immobilizer crutches and supplementing oxycodone with higher dose of diclofenac. His discharge paperwork and recommendations were prepared he did not wish to wait for them. Patient left without signing his discharge paperwork. 1 Oxycodone Hcl (Ir) 10 Mg Tab Sum [id number] Les (0 655) Private Pay 5 Buprenorphine 2 Mg Tablet Sl Ka Can [id number] All (9 [phone]) Private Pay 1 Testosterone Cyp 2,000 Mg/10ml Je Sum [id number] [place] ( 0128) Comm Ins 1 Oxycodone Hcl (Ir) 10 Mg Tab Je Sum [id number] [place] (0 655) Private Pay 1 Oxycodone Hcl (Ir) 10 Mg Tab w Je Sum [id number] [place] (0 128) Private Pay 1 Oxycodone Hcl (Ir) 10 Mg Tab Je Sum [id number] [place] (0 655) Private Pay 1 Testosterone Cyp 2,000 Mg/10ml Je Sum [id number] [place] ( 0128) Comm Ins 1 Oxycodone Hcl (Ir) 10 Mg Tab Je Sum [id number] [place] (07 20) Private Payw 1 Oxycodone Hcl (Ir) 10 Mg Tab Je Sum [id number] [place] (0 655) Private Pay 1 Oxycodone Hcl (Ir) 10 Mg Tab Je Sum [id number] [place] (0 655) Private Pay 1 Testosterone Cyp 2,000 Mg/10ml Je Sum [id number] [place] (0655) Private Pay 1 Oxycodone Hcl (Ir) 10 Mg Tab Je Sum [id number] [place] (07 20) Private Pay 1 Oxycodone Hcl (Ir) 10 Mg Tab Je Sum [id number] [place] (07 20) Private Pay 1 Oxycodone Hcl (Ir) 20 Mg Tab Je Sum [id number] [place] (0 655) Private Pay 1 Oxycodone Hcl (Ir) 10 Mg Tab Je Sum [id number] [place] (07 20) Private Pay 1 Oxycodone Hcl (Ir) 10 Mg Tab Je Sum 138204 [place] (07 20) Comm Ins 1 Oxycodone Hcl (Ir) 10 Mg Tab Je Sum [id number] [place] (0 655) Private Pay 1 Oxycodone Hcl (Ir) 10 Mg Tab Je Sum [id number] [place] (0 655) Private Pay 1 Oxycodone Hcl (Ir) 10 Mg Tab Je Sum [id number] [place] (0 655) Private Pay 1 Oxycodone Hcl (Ir) 10 Mg Tab Je Sum [id number] [place] (07 20) Comm Ins 1 Oxycodone Hcl (Ir) 10 Mg Tab Je Sum [id number] [facility] (07 20) Other 1 Oxycodone Hcl (Ir) 10 Mg Tab Je Sum 4841955 [place] (0 655) Private Pay 1 Oxycodone Hcl (Ir) 30 Mg Tab Je Sum [id number] Les (0 655) Private Pay 1 Oxycodone Hcl (Ir) 30 Mg Tab Je Sum [id number] [place] (0 655) Private Pay 1 Oxycodone Hcl (Ir) 10 Mg Tab Je Sum [id number] [place] (0 655) Private Pay 1 Oxycodone Hcl (Ir) 10 Mg Tab Je Sum [id number] [place] (0 655) Private Pay 1 Oxycodone Hcl (Ir) 10 Mg Tab Je Sum [id number] [place] (0 655) Private Pay 1 Oxycodone Hcl (Ir) 10 Mg Tab Je Sum [id number] Les (0 655) w Private Pay 1 Oxycodone Hcl (Ir) 10 Mg Tab Je Sum [id number] [place] (0 655) Private Pay 1 Hydrocodone-Acetamin 7.5-325 Je Sum [id number] [place] (0 655) Private Pay 1 Alprazolam 1 Mg Tablet Je Sum [id number] [place] (0655) Comm Ins 1 Hydrocodone-Acetamin 7.5-325w Je Sum [id number] [place] ( 0655) Private Pay 1 Alprazolam 1 Mg Tablet Je Sum [id number] [place] (0655) Comm Ins 1 Hydrocodone-Acetamin 7.5-325 Je Sum 8197710 [place] (0 655) Private Pay 2 Hydrocodone-Acetamin 7.5-325 [place] 067219 [place] (36 19) Comm Ins 2 Alprazolam 1 Mg Tablet [place] 757314 [place] (3619) Comm Ins 2 Hydrocodone-Acetamin 7.5-325 [place] 123583 [place] (36 19) Comm Ins 2 Alprazolam 1 Mg Tablet [place] 785635 [place] (3619) Comm Ins 2 Alprazolam 1 Mg Tablet [place] 674180 [place] (3619) Comm Ins 2 Hydrocodone-Acetamin 5-325 Mg [place] 493925 [place] (3 619) Comm Ins 2 Hydrocodone-Acetamin 5-325 Mg [place] 415299 [place] (3 619) Comm Ins 2 Hydrocodone-Acetamin 7.5-325 [place] 811028 [place] (36 19) Comm Ins 2 Alprazolam 1 Mg Tablet [place] 560551 [place] (3619) Comm Ins 2 Hydrocodone-Acetamin 7.5-325 [place] 441645 [place] (36 19) Comm Ins 2 Alprazolam 1 Mg Tablet [place] 449437 [place] (3619) Comm Ins 2 Alprazolam 1 Mg Tablet [place] 217906 [place] (3619) Comm Ins 2 Hydrocodone-Acetamin 7.5-325 [place] 236139 [place] (36 19) Comm Ins 2 Alprazolam 1 Mg Tablet [place] 518345 [place] (3619) Comm Ins 2 Hydrocodone-Acetamin 7.5-325 [place] 577671 [place] (36 19) Comm Ins 2 Hydrocodone-Acetamin 5-325 Mg [facility] 620789 [place] (3 619) Comm Ins 2 Hydrocodone-Acetamin 5-325 Mg [facility] 291295 [place] (3 619) Comm Ins 2 Alprazolam 1 Mg Tablet [facility] 934882 [place] (3619) Comm Ins 2 Hydrocodone-Acetamin 7.5-325 [place] 063611 [place] (36 19) Comm Ins 2 Alprazolam 1 Mg Tablet [place] 521163 [place] (3619) Comm Ins 2 Hydrocodone-Acetamin 7.5-325 [place] [id number] [facility] (36 19) Comm Ins 2 Alprazolam 1 Mg Tablet [place] 354831 [place] (3619) Comm Ins 2 Alprazolam 1 Mg Tablet [facility] 573345 [place] (3619) Comm Ins 2 Hydrocodone-Acetamin 7.5-325 [facility] 576543 [place] (36 19) Comm Ins 4 Oxycodone Hcl (Ir) 5 Mg Tablet [facility] [id number] [facility] (2177) Comm Ins 3 Alprazolam 1 Mg Tablet [place] 489290 [place] (3619) Comm Ins 3 Hydrocodone-Acetamin 5-325 Mg [place] 210982 [place] (3 619) Comm Ins 2 Hydrocodone-Acetamin 5-325 Mg [place] 581933 [place] (3 619) Comm Ins 2 Hydrocodone-Acetamin 5-325 Mg [place] 904878 [place] (3 619) Comm Ins 2 Hydrocodone-Acetamin 5-325 Mg [place] 800134 [place] (3 619) Comm Ins Medical Records I reviewed the patient's medical records. No radiology studies performed this visit Discharge Plan Discharge Patient Disposition: Home Clinical Impression: Chronic knee pain Condition: Stable Prescriptions: New diclofenac sodium 75 mg tablet,delayed release (DR/EC) 75 mg PO Q12H PRN (Reason: pain) Qty: 20 0RF Discontinued diclofenac sodium 50 mg tablet,delayed release (DR/EC) 50 mg PO Q12H Qty: 20 0RF No Action oxycodone 10 mg tablet 10 mg PO TID PRN Cortisporin-TC 3.3-3-10-0.5 mg/mL drops,suspension 4 drp otic (ear) TID Qty: 10 0RF Discharge Orders: Discharge ED (Routine); Ordered 12/21/23 Ordered By: Tushar Vogt Discharge Diet: Usual diet Discharge Activity: Resume usual activity Patient Instructions: Opioid Safety, Pain Management Activity Restrictions/Additional Instructions: Thank you for choosing [facility] for your healthcare needs today. It is very important that you follow up as instructed or that you return to the Emergency Department should you have concerns or if your condition changes or worsens in any way. You were seen today with chronic knee pain we recommended that you use a knee immobilizer and be nonweightbearing on your right knee completely. Since this is a chronic issue dating back to October 2020 recommend using anti-inflammatories. Recommend following up with your orthopedic doctor as soon as you are able. You can continue using the previously prescribed oxycodone from the orthopedist. Coding Level of Care Code ED Technical Mgr for Noris Wyman
--- NOTE | 2023-12-21 09:38 | W.ED.EXTPRO ---
HPI - Extremity Problem General: Chief complaint: Extremity Injury, Lower Stated complaint: Rt knee inj Time Seen by Provider: 12/21/23 09:36 Source: patient Mode of arrival: ambulatory History of Present Illness: 33-year-old male presents to the emergency room complaining of left knee pain. He states he fell off a ladder a few weeks ago he was seen by orthopedics after that had an MRI and MRI done and tells me that he is scheduled to have a knee surgery done in a couple of weeks. No other injuries since the MRI. He states been taking oxycodone regularly with no relief of pain. MD Complaint: joint pain Location: right and knee Quality: sharp [facility] ED PFSH: Medical History Psychiatric care Physical Exam Narrative: EXAM NARRATIVE: Patient awake alert and oriented no acute distress. Right knee is in a brace there is no swelling or ecchymosis. Patient declined further exam Course Vital Signs: Vital signs: Vital Signs Temperature 98.0 F 12/21/23 09:28 Pulse Rate 91 12/21/23 09:28 Respiratory Rate 18 12/21/23 09:28 Pulse Oximetry 98 12/21/23 09:28 Oxygen Delivery Me thod Room Air 12/21/23 09:28 MDM - Extremity (Nontraumatic) Medical Decision Making Patient presents with chronic knee pain. The original injury dates back to October 2020. He states he fell a couple of weeks ago but has not had any injury since the MRI done at that time. He has been using oxycodone up to 3 times a day and reports pain is not controlled. Looking through his office notes He has had extensive prescription of narcotics and benzodiazepines. patient declined exam. He also declined recommendation for a knee immobilizer crutches and supplementing oxycodone with higher dose of diclofenac. His discharge paperwork and recommendations were prepared he did not wish to wait for them. Patient left without signing his discharge paperwork. 1 Oxycodone Hcl (Ir) 10 Mg Tab Je Sum [id number] [place] (9236) Private Pay 5 Buprenorphine 2 Mg Tablet Sl Ka [place] [id number] All (8401) Private Pay 1 Testosterone Cyp 2,000 Mg/10ml Je Sum 766512 [place] (0128) Comm Ins 1 Oxycodone Hcl (Ir) 10 Mg Tab Je Sum [id number] [place] (0655) Private Pay 1 Oxycodone Hcl (Ir) 10 Mg Tab Je Sum [id number] [place] (0128) Private Pay 1 Oxycodone Hcl (Ir) 10 Mg Tab Je Sum [id number] [place] (0655) Private Pay 1 Testosterone Cyp 2,000 Mg/10ml Je Sum 409937 [place] (0128) Comm Ins 1 Oxycodone Hcl (Ir) 10 Mg Tab Je Sum 321948 [place] (0128) Private Pay 1 Oxycodone Hcl (Ir) 10 Mg Tab Je Sum [id number] [place] (0655) Private Pay 1 Oxycodone Hcl (Ir) 10 Mg Tab Je Sum [id number] [place] (0655) Private Pay 1 Testosterone Cyp 2,000 Mg/10ml Je Sum 7674084 [place] (0655) Private Pay 1 Oxycodone Hcl (Ir) 10 Mg Tab Je Sum 357141 [place] (0128) Private Pay 1 Oxycodone Hcl (Ir) 10 Mg Tab Je Sum 235700 [place] (0128) Private Pay 1 Oxycodone Hcl (Ir) 20 Mg Tab Je Sum [id number] [place] (0655) Private Pay 1 Oxycodone Hcl (Ir) 10 Mg Tab Je Sum 029178 [place] (0128) Private Pay 1 Oxycodone Hcl (Ir) 10 Mg Tab Je Sum 744196 [place] (0128) Comm Ins 1 Oxycodone Hcl (Ir) 10 Mg Tab Je Sum 0156015 [place] (0655) Private Pay 1 Oxycodone Hcl (Ir) 10 Mg Tab Je Sum [id number] [place] (0655) Private Pay 1 Oxycodone Hcl (Ir) 10 Mg Tab Je Sum [id number] [place] (0655) Private Pay 1 Oxycodone Hcl (Ir) 10 Mg Tab Je Sum 509670 [place] (0128) Comm Ins 1 Oxycodone Hcl (Ir) 10 Mg Tab Je Sum 883263 [place] (0128) Other 1 Oxycodone Hcl (Ir) 10 Mg Tab Je Sum [id number] Les (0655) Private Pay 1 Oxycodone Hcl (Ir) 30 Mg Tab Je Sum [id number] Les (0655) Private Pay 1 Oxycodone Hcl (Ir) 30 Mg Tab Je Sum [id number] [place] (0655) Private Pay 1 Oxycodone Hcl (Ir) 10 Mg Tab Je Sum [id number] [place] (0655) Private Pay 1 Oxycodone Hcl (Ir) 10 Mg Tab Je Sum [id number] [facility] (0655) Private Pay 1 Oxycodone Hcl (Ir) 10 Mg Tab Je Sum [id number] [facility] (0655) Private Pay 1 Oxycodone Hcl (Ir) 10 Mg Tab Je Sum [id number] [facility] (0655) Private Pay 1 Oxycodone Hcl (Ir) 10 Mg Tab Je Sum [id number] [facility] (0655) Private Pay 1 Hydrocodone-Acetamin 7.5-325 Je Sum [id number] [facility] (0655) Private Pay 1 Alprazolam 1 Mg Tablet Je Sum [id number] [facility] (0655) Comm Ins 1 Hydrocodone-Acetamin 7.5-325 Je Sum 8354493 [facility] (0655) Private Pay 1 Alprazolam 1 Mg Tablet Je Sum [id number] [facility] (0655) Comm Ins 1 Hydrocodone-Acetamin 7.5-325 Je Sum 7997231 [facility] (0655) Private Pay 2 Hydrocodone-Acetamin 7.5-325 [place] 440046 [place] (3618) Comm Ins 2 Alprazolam 1 Mg Tablet [place] 795679 [place] (3618) Comm Ins 2 Hydrocodone-Acetamin 7.5-325 [place] 528174 [place] (361) Comm Ins 2 Alprazolam 1 Mg Tablet [place] 716752 [place] (361) Comm Ins 2 Alprazolam 1 Mg Tablet [place] 149617 [place] (361) Comm Ins 2 Hydrocodone-Acetamin 5-325 Mg [place] 785034 [place] (361) Comm Ins 2 Hydrocodone-Acetamin 5-325 Mg [place] 089578 [place] (361) Comm Ins 2 Hydrocodone-Acetamin 7.5-325 [place] 653070 [place] (361) Comm Ins 2 Alprazolam 1 Mg Tablet [place] 266893 [place] (361) Comm Ins 2 Hydrocodone-Acetamin 7.5-325 [place] 907235 [place] (361) Comm Ins 2 Alprazolam 1 Mg Tablet [place] 553548 [place] (361) Comm Ins 2 Alprazolam 1 Mg Tablet [place] 190952 [place] (361) Comm Ins 2 Hydrocodone-Acetamin 7.5-325 [place] 769455 [place] (361) Comm Ins 2 Alprazolam 1 Mg Tablet [place] 422425 [facility] (3618) Comm Ins 2 Hydrocodone-Acetamin 7.5-325 [place] 410638 [facility] (3618) Comm Ins 2 Hydrocodone-Acetamin 5-325 Mg [facility] 448712 [facility] (3618) Comm Ins 2 Hydrocodone-Acetamin 5-325 Mg [facility] 796619 [facility] (3618) Comm Ins 2 Alprazolam 1 Mg Tablet [facility] 675339 [facility] (3618) Comm Ins 2 Hydrocodone-Acetamin 7.5-325 [place] 740817 [facility] (3618) Comm Ins 2 Alprazolam 1 Mg Tablet [place] 368565 [facility] (3618) Comm Ins 2 Hydrocodone-Acetamin 7.5-325 [place] 830031 [facility] (3618) Comm Ins 2 Alprazolam 1 Mg Tablet [facility] 178499 [facility] (3618) Comm Ins 2 Alprazolam 1 Mg Tablet [facility] 491230 [facility] (3618) Comm Ins 2 Hydrocodone-Acetamin 7.5-325 [facility] 273201 [facility] (3618) Comm Ins 4 Oxycodone Hcl (Ir) 5 Mg Tablet [facility] [id number] [facility] (2177) Comm Ins 3 Alprazolam 1 Mg Tablet [place] 440349 [facility] (3618) Comm Ins 3 Hydrocodone-Acetamin 5-325 Mg [place] 381428 [facility] (3618) Comm Ins 2 Hydrocodone-Acetamin 5-325 Mg [facility] 439302 [facility] (3618) Comm Ins 2 Hydrocodone-Acetamin 5-325 Mg [place] 117824 [facility] (3618) Comm Ins 2 Hydrocodone-Acetamin 5-325 Mg [place] 185082 [facility] (3618) Comm Ins Medical Records I reviewed the patient's medical records. No radiology studies performed this visit Discharge Plan Discharge Patient Disposition: Home Clinical Impression: Chronic knee pain Condition: Stable Prescriptions: New diclofenac sodium 75 mg tablet,delayed release (DR/EC) 75 mg PO Q12H PRN (Reason: pain) Qty: 20 0RF Discontinued diclofenac sodium 50 mg tablet,delayed release (DR/EC) 50 mg PO Q12H Qty: 20 0RF No Action oxycodone 10 mg tablet 10 mg PO TID PRN Cortisporin-TC 3.3-3-10-0.5 mg/mL drops,suspension 4 drp otic (ear) TID Qty: 10 0RF Discharge Orders: Discharge ED (Routine); Ordered 12/21/23 Ordered By: Tushar Vogt Discharge Diet: Usual diet Discharge Activity: Resume usual activity Patient Instructions: Opioid Safety, Pain Management Activity Restrictions/Additional Instructions: Thank you for choosing [facility] for your healthcare needs today. It is very important that you follow up as instructed or that you return to the Emergency Department should you have concerns or if your condition changes or worsens in any way. You were seen today with chronic knee pain we recommended that you use a knee immobilizer and be nonweightbearing on your right knee completely. Since this is a chronic issue dating back to October 2020 recommend using anti-inflammatories. Recommend following up with your orthopedic doctor as soon as you are able. You can continue using the previously prescribed oxycodone from the orthopedist. Coding Level of Care Code ED Agent Broker for Noris Wyman
[2023-12-21 10:07] VITALS: PULSE 91; RESP 18; TEMP 36.7; O2SAT 98
== END 2023-12-21 10:09 | disposition home or self-care (01) ==
PROVIDERS: Emergency Provider Family Medicine
DX: G89.29 Other chronic pain (principal); M25.562 Pain in left knee
CPT/HCPCS: 99283

== ENCOUNTER 2024-04-30 20:26 | Emergency (ER) | payer OTHER, SELFPAY ==
[2024-04-30 20:50] VITALS: BP 137/84; PULSE 81; RESP 15; TEMP 36.8; O2SAT 95; BMI 29.9
--- NOTE | 2024-04-30 21:28 | ED_ITS ---
HPI - Extremity Problem General: Chief complaint: Extremity Injury, Upper Stated complaint: surg yesterday, believes open and bleeding Time Seen by Provider: 04/30/24 21:18 History of Present Illness: Presents to the ER for wound check on right elbow. Patient had ulnar nerve release done yesterday at [facility] and today he is tolerant was felt the bed so he jumped up to grab quick he thinks he may have injured his incision site. He thinks it may be bleeding underneath the bandage. Related Data Home Medications Medication Instructions Recorded Confirmed oxycodone 10 mg tablet 10 mg PO TID PRN 06/09/23 10/03/23 Previous Rx's Medication Instructions Recorded [id number] 3.3 4 drp otic (ear) TID #10 mL 11/24/23 mg-3 mg-10 mg-0.5 mg/mL ear drops,susp (Cortisporin-TC) diclofenac sodium 75 mg 75 mg PO Q12H PRN pain #20 tabs 12/21/23 tablet,delayed release Allergies Allergy/AdvReac Type Severity Reaction Status Date / Time No Known Allergies Allergy Verified 04/30/24 20:48 Review of Systems General: Reports: 10 or more systems reviewed and unremarkable except in HPI and below PFSH ED PFSH: Medical History Psychiatric care Physical Exam Extremity: NARRATIVE EXTREMITY EXAM: Right elbow bandage and is clean and dry and intact. When bandage was removed we noticed surgical laceration near the elbow over the ulnar nerve region there was closed with carmelo with no new bleeding. Incision will be redressed by nursing. Course Vital Signs: Vital signs: Vital Signs Temperature 98.3 F 04/30/24 20:50 Pulse Rate 81 04/30/24 20:50 Respiratory Rate 15 04/30/24 20:50 Blood Pressure 137/84 04/30/24 20:50 Pulse Oximetry 95 04/30/24 20:50 Oxygen Delivery Me thod Room Air 04/30/24 20:50 MDM - Extremity (Nontraumatic) Medical Decision Making Remove the surgical dressing area was clean dry and intact, we will replace the dressing and discharge patient he can follow back up with his surgeon at his next scheduled appointment. Medical Records I reviewed the patient's medical records. Lab Data I reviewed the patient's lab results. No radiology studies performed this visit Discharge Plan Discharge Patient Disposition: Home Clinical Impression: Encounter for post surgical wound check Condition: Stable Prescriptions: No Action oxycodone 10 mg tablet 10 mg PO TID PRN Cortisporin-TC 3.3-3-10-0.5 mg/mL drops,suspension 4 drp otic (ear) TID Qty: 10 0RF diclofenac sodium 75 mg tablet,delayed release (DR/EC) 75 mg PO Q12H PRN (Reason: pain) Qty: 20 0RF Discharge Orders: Discharge ED (Routine); Ordered 04/30/24 Ordered By: John Cespedes Activity Restrictions/Additional Instructions: The surgical incision site was clean warm and dry with no bleeding noted. We did put that dressing back over it. Please keep your appointment with your surgeon that has been already scheduled. If you have any more problems or concerns please feel free to return to the ER or call your surgeon. Coding Level of Care Code ED Fundraising Manager for Noris Wyman
== END 2024-04-30 21:41 | disposition home or self-care (01) ==
PROVIDERS: Emergency Provider Emergency Medicine
DX: Z48.811 Encounter for surgical aftercare following surgery on the nervous system (principal)
CPT/HCPCS: 99281

== ENCOUNTER 2024-05-01 15:47 | Outpatient (CLI) | payer OTHER, SELFPAY | END 2024-05-01 15:48 | disposition home or self-care (01) | PROVIDERS: Visit Provider Emergency Medicine | DX: E29.1 Testicular hypofunction (principal) | CPT/HCPCS: 84402 ==

== ENCOUNTER 2024-05-09 23:00 | Emergency (ER) | payer OTHER, SELFPAY ==
[2024-05-09 23:12] VITALS: BP 134/66; PULSE 66; RESP 14; TEMP 36.8; O2SAT 97
--- NOTE | 2024-05-10 01:04 | ED_ITS ---
HPI - Wound/Laceration General: Chief Complaint: Wound/Laceration Stated Complaint: stitches out from surgury Time Seen by Provider: 05/10/24 00:56 History of Present Illness: 34-year-old male patient who recently stoddard d an ulnar nerve transposition surgery at an outside facility he was post to get his carmelo removed 2 days ago, and was not able to make his appointment. He leaves town in the morning to go to work, and is concerned that he may not be able to get his carmelo out at that point. No drainage, no redness, no fevers. Related Data Home Medications Medication Instructions Recorded Confirmed oxycodone 10 mg tablet 10 mg PO TID PRN 06/09/23 10/03/23 Previous Rx's Medication Instructions Recorded [id number] 3.3 4 drp otic (ear) TID #10 mL 11/24/23 mg-3 mg-10 mg-0.5 mg/mL ear drops,susp (Cortisporin-TC) diclofenac sodium 75 mg 75 mg PO Q12H PRN pain #20 tabs 12/21/23 tablet,delayed release Allergies Allergy/AdvReac Type Severity Reaction Status Date / Time No Known Allergies Allergy Verified 05/09/24 23:15 [facility] ED PFSH: Medical History Psychiatric care Physical Exam Const: COMMON NORMALS: no acute distress GENERAL APPEARANCE: cooperative; not ill appearing and not frail appearing HENMT: COMMON NORMALS: normocephalic and atraumatic HEAD & SCALP: normocephalic and atraumatic FACE & SINUS: normal facial exam and face symmetric Eye: COMMON NORMALS: Equal, round and reactive pupils present and EOMs intact bilaterally PUPIL: Yes Equal, round and reactive pupils present Chest: CHEST: Yes Symmetrical chest wall rise Resp: COMMON NORMALS: normal respiratory effort, No retractions and No use of accessory muscles Cardio: COMMON NORMALS: regular rate and regular rhythm RATE: regular rate RHYTHM: regular rhythm Neuro: CHERRY COMA SCALE: document GCS findings Cherry coma scale eye opening: Spontaneous Cherry coma scale verbal response: Orientated Cherry coma scale motor response: Obey commands Cherry coma scale total score: 15 SENSORY EXAM: Yes extremities (intact) Psych: COMMON NORMALS: speech normal SPEECH: Yes normal speech Skin: NARRATIVE SKIN EXAM: Right elbow incision well-approximated, clean, no drainage, no erythema. Course Vital Signs: Vital signs: Vital Signs Temperature 98.2 F 05/09/24 23:12 Pulse Rate 66 05/09/24 23:12 Respiratory Rate 14 05/09/24 23:12 Blood Pressure 134/66 05/09/24 23:12 Pulse Oximetry 97 05/09/24 23:12 Oxygen Delivery Me thod Room Air 05/09/24 23:12 MDM - Wound/Laceration Medical Decision Making [place] removed. Steri-Strips put in place, as the patient will be quite active at work. He will remove them when they are beginning to fall off. Outpatient follow-up according to his surgeon. No radiology studies performed this visit Discharge Plan Discharge Patient Disposition: Home Clinical Impression: Removal of carmelo Condition: Stable Prescriptions: No Action oxycodone 10 mg tablet 10 mg PO TID PRN Cortisporin-TC 3.3-3-10-0.5 mg/mL drops,suspension 4 drp otic (ear) TID Qty: 10 0RF diclofenac sodium 75 mg tablet,delayed release (DR/EC) 75 mg PO Q12H PRN (Reason: pain) Qty: 20 0RF Discharge Orders: Discharge ED (Routine); Ordered 05/10/24 Ordered By: Harry Hamilton Patient Instructions: Staple Care (ED), Opioid Safety, Pain Management Activity Restrictions/Additional Instructions: Keep Steri-Strips dry for 12 hours, then you may wash with soap and running water. Do not soak. As Steri-Strips begin to wear off over the next couple of days, you may remove. This keeps the wound from stretching open well as fracture. Return for problems. Coding Level of Care Code ED Assistant Guest Services Manager for Noris Wyman
== END 2024-05-10 01:16 | disposition home or self-care (01) ==
PROVIDERS: Emergency Provider Emergency Medicine
DX: Z48.02 Encounter for removal of sutures (principal)
CPT/HCPCS: 99281

== ENCOUNTER 2024-09-05 11:41 | Emergency (ER) | payer OTHER, SELFPAY ==
--- NOTE | 2024-09-05 11:44 | XRR_ITS ---
PROCEDURE INFORMATION: Exam: XR Right Knee Exam date and time: 09/05/2024 12:04 PM Age: 34 years old Clinical indication: Right; RT medial knee pain post twisting injury TECHNIQUE: Imaging protocol: Radiologic exam of the right knee. Views: 3 views. COMPARISON: No relevant prior studies available. FINDINGS: Bones/joints: Normal. Soft tissues: Suprapatellar joint effusion. XR/XR knee RT 3V* [id number] IMPRESSION: No acute osseous findings. Suprapatellar joint effusion.
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
[2024-09-05 11:56] VITALS: BP 153/72; PULSE 84; RESP 17; TEMP 36.5; O2SAT 98; BMI 30.7
[2024-09-05] MEDS: HYDROcodone-acetaminophen 7.5-325 mg Tablet 1 TAB PO (12:02)
[2024-09-05 13:07] VITALS: BP 128/80; PULSE 74; O2SAT 94
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
== END 2024-09-05 13:08 | disposition home or self-care (01) ==
PROVIDERS: Emergency Provider Emergency Medicine
DX: S83.91XA Sprain of unspecified site of right knee, initial encounter (principal); X58.XXXA Exposure to other specified factors, initial encounter
CPT/HCPCS: 73562; 99283; E0114; J9999

== ENCOUNTER → 2024-09-09 15:39 | Outpatient (BNVA) | payer OTHER, SELFPAY | PROVIDERS: Visit Provider Orthopaedic Surgery | DX: S83.91XA Sprain of unspecified site of right knee, initial encounter (principal); X58.XXXA Exposure to other specified factors, initial encounter; M25.561 Pain in right knee | CPT/HCPCS: 73560; 73565 ==

== ENCOUNTER 2024-11-17 18:36 | Emergency (ER) | payer OTHER, SELFPAY ==
[2024-11-17 18:54] VITALS: PULSE 85; RESP 18; TEMP 37.3; O2SAT 93
[2024-11-17 18:57] VITALS: BP 118/67
[2024-11-17 20:22] LABS: Rapid Strep A Test Negative (Negative)
[2024-11-17 20:51] LABS: Influenza A NEGATIVE (Negative); Influenza B NEGATIVE (Negative); Respiratory Syncytial Virus Ce NEGATIVE (Negative); SARS-CoV-2 PCR NEGATIVE (Negative)
[2024-11-17] MEDS: lidocaine 2% viscous 15 mL UDC MUCOUS MEM (22:15)
--- NOTE | 2024-11-17 22:17 | W.ED.URI ---
HPI - URI/Sore Throat General: Chief Complaint: Upper Respiratory Infection Stated Complaint: Can't eat or drink Throat sore Time Seen by Provider: 11/17/24 21:04 Source: patient Mode of arrival: ambulatory Limitations: no limitations History of Present Illness: 34yo male presents with a sore throat that started yesterday. Patient states that he can barely swallow and is having trouble eating and drinking due to the pain in the throat. States he is concerned he may have strep throat. Patient is unsure of any known sick contacts. He denies fever, drooling, vomiting, any other concerns at this time. Associated symptoms: Deny chills, chest pain, fever(s), headache(s) or vomiting Related Data Home Medications ?Medication ?Instructions ?Recorded ?Confirmed oxycodone 10 mg tablet 10 mg PO TID PRN 06/09/23 09/14/24 testosterone cypionate 200 mg/mL mg IM .weekly 09/09/24 09/14/24 intramuscular syringe Previous Rx's ?Medication ?Instructions ?Recorded amoxicillin 500 mg capsule 500 mg PO BID #20 caps 11/17/24 Allergies Allergy/AdvReac Type Severity Reaction Status Date / Time No Known Allergies Allergy Verified 09/14/24 08:23 Review of Systems Const: Denies: fever(s), chills or body aches ENMT: Reports: throat pain Card: Denies: chest pain Resp: Denies: dyspnea GI: Denies: vomiting Skin/Breast: Denies: rash Neuro: Denies: headache(s) PFS ED PFSH: Social History Smoking and tobacco/nicotine status: current every day tobacco/nicotine user Physical Exam Const: COMMON NORMALS: no acute distress, patient oriented x3, healthy appearing and alert GENERAL APPEARANCE: cooperative ORIENTATION/CONSCIOUSNESS: Yes awake OTHER: Patient is sitting upright in vertical flow recliner in no acute distress. He is able to give history with no difficulty. He is interactive with exam appropriately. No family is at bedside at time of exam HENMT: COMMON NORMALS: normocephalic and atraumatic HEAD & SCALP: normocephalic and atraumatic MOUTH: lip normal THROAT: abnormal tonsil right exudates; uvula not laterally displaced Neck/C-Spine: COMMON NORMALS: full ROM and no meningeal signs Chest: CHEST: Yes Symmetrical chest wall rise Resp: COMMON NORMALS: normal respiratory effort and clear to auscultation bilaterally EFFORT & INSPECTION: Yes able to speak in complete sentences AUSCULTATION: clear to auscultation bilaterally Cardio: COMMON NORMALS: regular rate and regular rhythm RATE: regular rate RHYTHM: regular rhythm Extremity: COMMON NORMALS: full ROM Neuro: COMMON NORMALS: patient oriented x3 SENSORIUM/ORIENTATION: Yes alert MENINGEAL SIGNS: Yes no meningeal signs Psych: COMMON NORMALS: cooperative Course Vital Signs: Vital signs: Vital Signs Temperature 99.1 F 11/17/24 18:54 Pulse Rate 85 11/17/24 18:54 Respiratory Rate 18 11/17/24 18:54 Blood Pressure 118/67 11/17/24 18:57 Pulse Oximetry 93 11/17/24 18:54 Oxygen Delivery Me thod Room Air 11/17/24 18:54 MDM - URI/Sore Throat Medical Decision Making 34yo male presents with a sore throat that started yesterday. Patient states that he can barely swallow and is having trouble eating and drinking due to the pain in the throat. Patient is nontoxic in appearance. Vital signs are stable. Testing completed while awaiting room placement. Rapid strep was negative, culture is pending. Influenza A/B, COVID-19, and RSV not detected. Discussed findings with patient. On exam, exudates noted on the right posterior tonsil. Given patient's symptoms, we will proceed with antibiotic therapy. Encourage patient to increase his fluid intake and continue to monitor symptoms. Advised to follow-up with primary care, call Friday with an update of symptoms and to discuss recheck. Return precautions provided. Patient states understanding and has no further questions or concerns at this time. Medical Records I reviewed the patient's medical records. Lab Data I reviewed the patient's lab results. Laboratory Results Influenza A (PCR) Negative (Negative) 11/17/24 20:00 Influenza Type B (PCR) Negative (Negative) 11/17/24 20:00 RSV (PCR) Negative (Negative) 11/17/24 20:00 SARS-CoV-2 (PCR) Negative (Negative) 11/17/24 20:00 Group A Strep Rapid Negative (Negative) 11/17/24 20:00 No radiology studies performed this visit Discharge Plan Discharge Patient Disposition: Home Clinical Impression: Pharyngitis Qualifiers: Pharyngitis/tonsillitis etiology: unspecified etiology Qualified Code(s): J02.9 - Acute pharyngitis, unspecified Condition: Stable Prescriptions: New amoxicillin 500 mg capsule 500 mg PO BID Qty: 20 0RF No Action oxycodone 10 mg tablet 10 mg PO TID PRN testosterone cypionate 200 mg/mL syringe IM .weekly Discharge Orders: Discharge ED (Routine); Ordered 11/17/24 Ordered By: James Brown Discharge Diet: Advance as tolerated Patient Instructions: Pharyngitis (ED) Activity Restrictions/Additional Instructions: Antibiotics have been sent to the pharmacy to begin treatment of pharyngitis of the throat. Increase your fluid intake and continue to monitor symptoms Salt water gargles may help with the sore throat Follow-up with primary care, call Friday with an update of symptoms and to discuss a recheck Return to the emergency department if any rapid worsening symptoms, difficulty swallowing, painful tongue movements, and as needed Print Language: Kyrgyz Coding Level of Care Code ED Fisheries Manager for Noris Wyman
[2024-11-17] MEDS: amoxicillin 500 mg Capsule PO (22:36)
[2024-11-17 22:47] VITALS: BP 152/75; PULSE 85; RESP 16; O2SAT 95
== END 2024-11-17 22:38 | disposition home or self-care (01) ==
PROVIDERS: Emergency Medicine; Emergency Provider Nurse Practitioner
DX: J02.9 Acute pharyngitis, unspecified (principal)
CPT/HCPCS: 87081; 87637; 87880; 99283; J9999

== ENCOUNTER 2024-12-17 02:56 | Emergency (ER) | payer OTHER, SELFPAY | END 2024-12-17 03:23 | disposition left against medical advice (07) | LOC: ER 03:05 | PROVIDERS: Emergency Provider Family Medicine | DX: Z53.21 Procedure and treatment not carried out due to patient leaving prior to being seen by health care provider (principal) ==